=== PATIENT | female | born 1970 | race Caucasian/White ===

== ENCOUNTER → 2016-12-28 | Outpatient (CLI) | payer OTHER, BC ==
--- NOTE | 2016-12-29 11:23 | MR ---
EXAM DATE: 12/28/16 PATIENT'S AGE: 46 Patient: VALENTINA PEPE Facility: [place], [place] Site . Site : 1970 Study: MRI Hip Right [id number]/1/2017 8:08:54 PM Ordering Physician: Karissa Oliver Final Report: HISTORY: Bilateral hip pain. Technique: MRI right hip without contrast. Comparison: Radiographs 11/22/2016. Findings: Right hip: Degenerative tearing of the anterior-superior and anterior acetabular labrum. High-grade cartilage loss in the anterior-superior acetabulum and femoral head. Small subchondral cysts in the anterior-superior acetabulum. Small femoral head marginal osteophytes. Upper limits of normal volume of hip joint fluid. No joint bodies. Left hip: Within the limits of large field of view images, hip joint space is preserved. No joint effusion. Bones: Patchy T1 intermediate marrow signal throughout the pelvis and the imaged portions of the proximal femurs and lumbar spine consistent with hematopoietic marrow. No fracture. No marrow replacing process. No avascular necrosis. Musculotendinous structures: Rectus femoris, distal iliopsoas, hip adductor, gluteal tendons are intact bilaterally. Mild proximal right hamstrings tendinosis. Muscle bulk is maintained. Bursa: No trochanteric or sub gluteal bursal effusion. Other: Left sacroiliac joint degenerative changes, partially imaged. Intrapelvic structures: Unremarkable. Impression: 1. Right hip osteoarthritis with areas of high-grade acetabular and femoral head cartilage loss. 2. Degenerative right acetabular labral tearing. 3. No fracture. Dictated by Dominic Enamorado MD @ Dec 29 2016 8:32AM (Electronic Signature) Report Signed by Proxy and Original Signed Document filed in the Medical Record. [facility] HOSPITALElida
== END ==
LOC: MW.MRI 18:20
PROVIDERS: ATTEND Orthopaedic Surgery
DX: S73.191A Other sprain of right hip, initial encounter (principal); M16.11 Unilateral primary osteoarthritis, right hip; M25.551 Pain in right hip; M25.552 Pain in left hip
CPT/HCPCS: 73721-26-RT; 73721-RT

== ENCOUNTER 2016-12-29 08:57 | Day surgery (SDC) | payer OTHER, BC ==
--- NOTE | 2016-12-28 17:29 | PCM.PREANE ---
Preanesthetic Assessment - ANESTHESIA/TRANSFUSION/FAMILY HX Anesthesia/Transfusion History: Prior Anesthesia Family History of Anesthesia Reaction: No Intubation History: Unknown - REVIEW OF SYSTEMS Constitutional: Reports: no symptoms LOG TUMBLER: Reports: no symptoms Respiratory: Reports: no symptoms (smoker) Cardiovascular: Reports: no symptoms GI: Reports: no symptoms Other: Reports: none - PHYSICAL ASSESSMENT Height: 6 ft Weight: 189 lb ASA Class: 2 Mental Status: alert & oriented x3 Airway Class: Mallampati = 2 Dentition: Reports: crown(s) (full veneers upper and lower). Denies: normal dentition Thyro-Mental Finger Breadths: 3 Mouth Opening Finger Breadths: 3 ROM/Head Extension: full Respiratory Status: lungs clear to auscultation bilaterally Cardiovascular Status: regular rate & rhythm - ALLERGIES Allergies/Adverse Reactions: Allergies Allergy/AdvReac Type Severity Reaction Status Date / Time No Known Allergies Allergy Verified 12/26/16 13:28 - BLOOD Blood Available: No Product(s) Available: None - ANESTHESIA PLAN Preop Beta Liliana: No Anesthesia Type Planned: general anesthesia, spinal - ACKNOWLEDGEMENTS Pt an appropriate candidate for the planned anesthesia: Yes Alternatives and risks of anesthesia discussed w pt/guardian: Yes Pt/Guardian understands and agree with anesthesia plan: Yes PreAnesthesia Questionnaire HEENT History: Reports: Other (see below) Other HEENT History: wears glasses Genitourinary History: Reports: None Musculoskeletal History: Reports: Back pain, chronic, Fibromyalgia, Osteoarthritis - Past Surgical History Head Surgeries/Procedures: Reports: None Female Surgical History: Reports: Breast implant Other Female Surgeries/Procedures: breast augmentation - SUBSTANCE USE Smoking Status *Q: Current Every Day Smoker Tobacco Use Within Last Twelve Months: Cigarettes Recreational Drug Use History: No - HOME MEDS Home Medications: Home Meds Ibuprofen 1 tab PO ASDIRECTED PRN 12/26/16 [History] Naproxen Sodium [Aleve] 1 tab PO ASDIRECTED PRN 12/26/16 [History]
[~2016-12-29 08:57] MED LIST: EPINEPHrine 1:1000 1 MG/ML SDV ONE; Lidocaine 2% 5 ML SDV ONE; Midazolam 1 MG/ML 2 ML SDV ONE; Propofol 200 MG/20 ML SDV ONE; ceFAZolin 2 GM in Premix Bag 1 BAG IV ONE; fentaNYL 100 MCG/2 ML SDV ONE
[2016-12-29] MEDS ORDERED: Lactated Ringers 1,000 ML IV SCH (10:15)
[2016-12-29] MEDS ORDERED: ePHEDrine 50 MG/ML SDV ONE (12:17)
[2016-12-29] MEDS ORDERED: Phenylephrine/Normal Saline 100 MCG/ML 10 ML Syringe ONE ×2 (12:28→13:29)
[2016-12-29] MEDS ORDERED: EPINEPHrine 1:1000 1 MG/ML SDV ONE (13:22)
[2016-12-29] MEDS ORDERED: Ondansetron 4 MG/2 ML SDV ONE (13:41)
[2016-12-29] MEDS ORDERED: Ketorolac 30 MG/ML SDV ONE (13:41)
[2016-12-29] MEDS ORDERED: HYDROmorphone 2 MG/ML Syringe ONE (13:48)
[2016-12-29] MEDS ORDERED: fentaNYL 100 MCG/2 ML SDV IVPUSH PRN (13:57)
--- NOTE | 2016-12-29 14:42 | PCM.OPNOTE ---
- General Post-Op/Procedure Note Date of Surgery/Procedure: 12/29/16 Operative Procedure(s): right hip arthroscopy, acetabuloplasty with labral repair, femoroplasty, bone grafting/percutaneous fixation of acetabular subchondral insufficiency fracture, trochanteric bursectomy Findings: large tear Pre Op Diagnosis: right hip ZAHRA, labral tear, acetabular chondromalacia, acetabular cyst/subchondral insufficiency fracture, trochanteric bursitis Post-Op Diagnosis: same Anesthesia Technique: General LMA, Spinal Primary Surgeon: Al Oliver Mai EBToni in mLs: 5 Complications: none Condition: Good
--- NOTE | 2016-12-29 15:11 | PCM.POSTAN ---
POST ANESTHESIA ASSESSMENT - MENTAL STATUS Mental Status: alert, oriented - VITAL SIGNS Pulse Rate: 63 SaO2: 97 Resp Rate: 14 Blood Pressure: 102/55 - RESPIRATORY Respiratory Status: respiratory rate WNL, airway patent, O2 saturation stable - CARDIOVASCULAR CV Status: pulse rate WNL, blood pressure stable - GASTROINTESTINAL GI Status: no symptoms - PAIN Pain Score: 0 (spinal still covering pain) - POST OP HYDRATION Hydration Status: adequate & stable
[2016-12-29] MEDS ORDERED: Acetaminophen/HYDROcodone 325-10 MG Tab PO PRN ×2 (16:03→17:10)
--- NOTE | 2016-12-29 16:38 | CR ---
EXAMINATION: Right hip arthroscopy HISTORY: Pain COMPARISON: MRI dated 12/28/2016 TECHNIQUE: 6 fluoroscopic images provided FINDINGS/IMPRESSION: Intraoperative control films provided demonstrate instrumentation projecting ov er the right hip.
--- NOTE | 2016-12-29 19:51 | PCM48HPAN ---
Post Anesthesia Note - EVALUATION WITHIN 48HRS OF ANESTHETIC Vital Signs in Normal Range: Yes Patient Participated in Evaluation: Yes Respiratory Function Stable: Yes Airway Patent: Yes Cardiovascular Function Stable: Yes Hydration Status Stable: Yes Pain Control Satisfactory: Yes Nausea and Vomiting Control Satisfactory: Yes Mental Status Recovered: Yes - COMMENTS/OBSERVATIONS Free Text/Narrative:: Pt was transferred from day surgery to [facility] for extended phase II recovery. Currently she only has minimal residual effects from her spinal. She states her "butt" is still numb but she feels she can attempt ambulation. Nursing was informed. VSS. No complications noted.
[2016-12-29 22:21] VITALS: BP 91/54
--- NOTE | 2016-12-29 23:46 | OR ---
SURGEON: Al Hancock MD DATE OF PROCEDURE: 12/29/2016 PREOPERATIVE DIAGNOSES: Right hip femoral acetabular impingement with labral tear, acetabular chondromalacia, trochanteric bursitis, and acetabular cyst/subchondral insufficiency fracture. POSTOPERATIVE DIAGNOSES: Right hip femoral acetabular impingement with labral tear, acetabular chondromalacia, trochanteric bursitis, and acetabular cyst/subchondral insufficiency fracture. OPERATIONS PERFORMED: Right hip arthroscopy, acetabuloplasty with labral repair, femoroplasty, bone grafting/percutaneous treatment of acetabular subchondral insufficiency fracture, trochanter bursectomy. ANESTHESIA: Spinal and general with LMA. COMPLICATIONS: None. ESTIMATED BLOOD LOSS: 5 mL. SPECIMENS: None. IMPLANTS: 1. [employer] AccuFill 3 mL acetabulum. 2. [employer]ani [employer] 1.4 JuggerKnot anchor suture x2. 3. Montes [employer] Nephew 1.8 Q-Fix anchor x2. TRACTION TIME: 1 hour. INDICATIONS: The patient is a 46-year-old female with above diagnosis. She has failed conservative management, treated with modification therapy and injections, and wished to undergo the above procedure. She understands risks, benefits, alternatives, and complications of procedure including, but not limited to infection, neurovascular injury, pain, nonresolution of symptoms, need for postoperative rehab protocol, microinstability, labial numbness, heterotopic ossification, accelerated arthritis and also continued pain particularly laterally, and she wished to proceed. NARRATIVE: The patient was seen in the preoperative area. Operative extremity was marked. The patient was transferred to operating room and spinal anesthetic was given. She was placed supine on the operative room table. General anesthesia was induced and LMA was placed. Her legs were placed in the leg bars in the Montes- Neph traction table with a wide specialized perineal post. The right hip was prepped and draped in a sterile fashion using alcohol followed by ChloraPrep. A time-out to identify correct patient, procedure, and extremity. She received preoperative antibiotics Ancef. Gross traction applied to both legs, fine traction to operating leg. A 1 cm primary anterolateral portal was established just superior and anterior to the greater trochanter using Seldinger technique and FlowPort obturator was introduced in the joint. A mid anterior portal was established 2 cm distal and 4 cm anterior to the primary anterolateral portal using Seldinger technique and a FlowPort obturator was introduced. Capsulotomy was performed connecting the 2 portals. The patient was found to have severe synovitis throughout the entire hip projecting down the ligamentum teres. Exploring the labrum, there was a large labral tear extending from the 12:30 to 3:30 position with a grade 4 chondromalacia of the anterior aspect of the acetabulum extending from the 1:30 to 4:30 position. Remainder of the acetabular cartilage only showed grade 1 to 2 changes and the femoral head cartilage was normal. The posterior labrum was normal. A synovectomy was performed with the shaver and also ligamentum teres synovitis was debrided with the Montes-Nephew ligament chisel. The capsule was then elevated off above the area of the labrum, and a DALA portal was established and cannula was replaced with 2 accessory portals. A liberator was used elevate off the labral tear. It was debrided, and then superior portal 2 cm proximal and 1 cm anterior. Anterior 11 gauge AccuPort cannula was introduced into the joint. This was placed across the area of the anterolateral acetabulum beneath the inferior iliac spine corresponding with subchondral insufficiency fracture/cyst. A 5 mL of AccuFill was mixed and 3 mL was placed and this was allowed to harden for 10 minutes, and then the AccuPort was removed. Following this, an acetabuloplasty was performed removing 2 to 3 mm anterior in the area of the labral tear, and then from the mid anterior portal, a curved 1.4 JuggerKnot suture anchor was placed with vertical mattress suture in the labrum repairing it down, and then from the DALA portal going 8 mm laterally. Two 1.8 Q-Fix anchors were placed with vertical mattress sutures in the labrum and posteriorly in the curve 1.4 JuggerKnot suture anchor was placed all with vertical mattress sutures. This led to a complete labral repair. It was coagulated to remove all erythema within the labrum. Following this, traction was released and the hip was flexed up to 20 to 30 degrees. Two SpeedStitch sutures were placed in inferior capsule and a tiny stab incision was made laterally and lateral tags were pulled out through this, and then T-capsulotomy going down about 1.5 cm was performed fully exposing the CAM lesion that extended from the 12 to 4:30 position. This was curetted off and the bur was used to remove about 4 to 6 mm throughout this entire area fully decompressing the CAM lesion. Direct visualization with impingement test as well as AP done 30, 45, and 90-degree x-rays confirming complete thorough osteochondroplasty. There was intense amount of synovitis medial capsule in the peripheral compartment and this was debrided with the shaver as well. The medial tag sutures were then passed through the lateral capsule using the SpeedStitch and this was secured down utilizing the lateral tag suture and 2 other sutures. The transverse capsulotomy was closed with 3 simple #2 permanent sutures fully closing the capsulotomy. Leg was then abducted 20 degrees and the arthroscope was introduced in the peritrochanteric space. The patient had intense amount of bursitis fully surrounding the entire hip. This was completely debrided with the shaver, and surface to coagulate if. Arthroscopic equipment was switched portals, and then the bursa was cleaned off the entire IT band, gluteus deirdre as well as over the abductors, there was some mild fraying in the abductor tendons, but no discrete tear. The hip was then drained. The portals were closed with 3-0 nylon, Xeroform, and sterile dress applied. The patient was extubated in the operating room and transferred to recovery room in stable condition. Sponge and needle counts correct at the end case. No complications. PLAN: The patient will follow up postop rehab protocol, avoiding lots of external rotation and variable positioning. She will be allowed weightbearing as tolerated. She will take Indocin for HO prophylaxis with Nexium as well as Cozaar for adhesion prophylaxis. MADISON / GRETCHEN /[id number]
== END 2016-12-29 21:20 | disposition home or self-care (01) ==
LOC: MW.SDS 08:57 → MW.MS 18:31 → MW.SDS 21:20
PROVIDERS: ATTEND Orthopaedic Surgery
DX: M25.851 Other specified joint disorders, right hip (principal); S73.101A Unspecified sprain of right hip, initial encounter; M94.251 Chondromalacia, right hip; M70.61 Trochanteric bursitis, right hip; S32.401A Unspecified fracture of right acetabulum, initial encounter for closed fracture; F17.210 Nicotine dependence, cigarettes, uncomplicated; G89.29 Other chronic pain; M54.9 Dorsalgia, unspecified; M79.7 Fibromyalgia; M19.90 Unspecified osteoarthritis, unspecified site; Z98.890 Other specified postprocedural states
CPT/HCPCS: 29914; 29915; 76001; 81025; A9270; J0171; J1170; J1885; J2250; J2405; J3010; J7120; 01202; C1713; C1776; J2704

== ENCOUNTER → 2017-01-10 | Outpatient (CLI) | payer OTHER, BC ==
--- NOTE | 2017-01-10 12:52 | CR ---
EXAMINATION: Pelvis and right hip HISTORY: Other disorder COMPARISON: MRI dated 12/28/2016 TECHNIQUE: AP pelvis and 2 views of the right hip FINDINGS: No acute osseous abnormality, dislocation, or fracture identified. Bone mineralization regina nt spaces appear normal. There is a prominence of the right superior acetabular rim, this could sugg est mild underlying pincer-type femoral acetabular impingement. Mild subchondral sclerosis is noted bilaterally, right greater than left. The SI joints are symmetric. IMPRESSION: 1. Mild Degenerative changes noted within the hips bilaterally, right greater than left.
== END ==
LOC: MW.CHORTHO 08:01
PROVIDERS: ATTEND Physician Assistant
DX: M25.851 Other specified joint disorders, right hip (principal)
CPT/HCPCS: 73502-26-RT; 73502-RT

== ENCOUNTER → 2017-01-17 | Outpatient (CLI) | payer OTHER ==
[~2017-01-17] MED LIST changes: -EPINEPHrine 1:1000 1 MG/ML SDV ONE; +Iopamidol 755 MG/ML 500 ML Multipack Bottle IVPUSH STA; -Lidocaine 2% 5 ML SDV ONE; -Midazolam 1 MG/ML 2 ML SDV ONE; -Propofol 200 MG/20 ML SDV ONE; -ceFAZolin 2 GM in Premix Bag 1 BAG IV ONE; -fentaNYL 100 MCG/2 ML SDV ONE
--- NOTE | 2017-01-17 16:14 | US ---
EXAMINATION: Right breast ultrasound HISTORY: Swelling COMPARISON: None TECHNIQUE: Grayscale and color Doppler images obtained of the upper outer right breast. FINDINGS: There are several round parallel anechoic well-circumscribed cyst within the upper outer r ight breast. The largest measures 8 x 5 mm. No internal color Doppler flow is noted. All demonstrate posterior acoustic enhancement. A partially visualized breast implant is also noted. No suspicious masses identified. IMPRESSION: BI-RADS 2: Benign. Multiple simple cysts are noted within the upper outer quadrant of th e right breast. Please follow-up palpable abnormalities clinically.
--- NOTE | 2017-01-17 16:21 | CT ---
CT of the abdomen with and without contrast. HISTORY: Adrenal mass TECHNIQUE: Axial CT images were obtained of the abdomen without and following the administration of 100 mL of Isovue-370 right antecubital fossa. Coronal and sagittal reconstructions obtained. FINDINGS: The lung bases are clear, no pleural effusion. There is a pleural-based nodule within the right lung base. Breast implants are noted. The liver, spleen, and pancreas appear unremarkable. There is a 2.5 x 1.7 cm left adrenal nodule, th is measures -5 Hounsfield units without contrast. The gallbladder appears normal. There is no bulky retroperitoneal lymphadenopathy. No abdominal ascites. There are no calcifications noted within the kidneys or along the courses of the ureters bilaterally . The kidneys enhance and function symmetrically without evidence of obstructive uropathy. The visualized large and small bowel are normal in caliber without evidence of obstruction. The visualized osseous structures appear normal. IMPRESSION: 1. Low-density left adrenal mass consistent with an adenoma.
== END ==
LOC: MW.DI 09:20
DX: R19.09 Other intra-abdominal and pelvic swelling, mass and lump (principal); N63 Unspecified lump in breast; E27.9 Disorder of adrenal gland, unspecified
CPT/HCPCS: 74170; 76641; Q9967

== ENCOUNTER → 2017-02-20 | Outpatient (CLI) | payer OTHER, BC ==
--- NOTE | 2017-02-21 09:58 | CR ---
EXAM DATE: 02/20/17 PATIENT'S AGE: 46 Patient: VALENTINA PEPE Facility: [place], [place] Site . Site : 1970 Study: XRay Extremity Right [id number]/24/2017 11:30:51 AM Ordering Physician: Karissa Oliver Final Report: HISTORY: Right hip pain, postop December 29. Findings: Two AP views and frogleg view of the pelvis with a cross-table lateral view of the right hip are compared with 22 November 2016. There are degenerative changes seen within the SI joints. There is mild decrease of the right hip joint space with mild spurring of the femoral head. No subchondral abnormality, fracture or dislocation seen. Impression: 1. Degenerative changes the SI joints. 2. Decreased joint space within the right hip with trace spurring compatible with degenerative change. Dictated by Araseli Castillo MD @ Feb 21 2017 12:42AM (Electronic Signature) Report Signed by Proxy and Original Signed Document filed in the Medical Record. MTDD
== END ==
LOC: MW.CHORTHO 07:35
PROVIDERS: ATTEND Orthopaedic Surgery
DX: M25.551 Pain in right hip (principal); M25.552 Pain in left hip
CPT/HCPCS: 73502-26-RT; 73502-RT

== ENCOUNTER 2017-03-21 13:09 | Day surgery (SDC) | payer BC, OTHER ==
[~2017-03-21 13:09] MED LIST changes: +Betamethasone Acetate/Betamethasone Sod Phosphate 30 MG/5 ML MDV ONE; -Iopamidol 755 MG/ML 500 ML Multipack Bottle IVPUSH STA; +Lidocaine 2% 5 ML SDV ONE; +Ropivacaine 0.5% 5 MG/ML 30 ML SDV ONE
--- NOTE | 2017-03-21 22:00 | OR ---
SURGEON: Amaya Grove D.O. DATE OF PROCEDURE: 03/21/2017 OR STAFF PRESENT: Monika Christie RN METAL DRILLING MACHINE OPERATOR: RT Carley. PREOPERATIVE DIAGNOSIS: Lumbar spondylosis. POSTOPERATIVE DIAGNOSIS: Lumbar spondylosis. PROCEDURE PERFORMED: 1. L3, L4, L5 bilateral diagnostic medial branch blocks. 2. Fluoroscopic guidance for needle placement. 3. Local with oral Valium for sedation. SCREENING QUESTIONS: The patient answered "No" to all the following questions: 1. Are you allergic to iodine, Betadine or latex? 2. Do you have a bleeding disorder? 3. Are you on anti-inflammatories or blood thinners? 4. Do you have any current local or systemic infections? MEDICAL NECESSITY: This is a patient with chronic low back pain who comes in for the above diagnostic procedure. This procedure is being performed in accordance with national guidelines written by the [employer]; please see medical necessity note in chart. DESCRIPTION OF PROCEDURE: The patient had the procedure thoroughly explained including risks, benefits and alternatives. Consent was signed in my clinic indicating understanding and willingness to proceed. The patient presented to [facility] and was escorted to the dressing room to disrobe and change into a hospital gown. Preoperative history and screening were performed by my nurse. Vital signs were taken and stable. The patient reported that Valium 10 milligrams was taken prior to the procedure. The patient was brought back to the procedure room and placed in the prone position on the procedure room table. A pillow was placed under the abdomen in order to flatten the lumbar lordosis. The back was prepped with ChloraPrep and sterilely draped. All personnel in the procedure room were dressed in appropriate attire including surgical scrubs, head and shoe covers. This was to ensure sterility while in the treatment room. During the time fluoroscopy was in use all personnel in the operating room wore lead gambino with thyroid collars. Sterile technique was used during the procedure. The fluoroscope was positioned to provide a right oblique view. Then the right L3 medial branch block was begun by anesthetizing the skin and soft tissues with 2 cubic centimeters of 2% Preservative-Free Lidocaine with a 25-gauge 1.5 inch needle. There were no signs of infection at the site of needle skin insertions. Using fluoroscopic guidance a sterile 22-gauge 3.5 inch spinal needle was positioned at the junction of the transverse process with the superior articular process of the L4 vertebral body. Precise needle placement was confirmed by fluoroscopy and 0.2 cubic centimeters of IsoVue-200 contrast dye which was injected through microbore tubing under live fluoroscopy and showed no intravascular flow pattern and adequate flow over the target L3 medial branch. Then 0.5 cubic centimeters of 0.5% Ropivacaine Preservative-Free was injected slowly without complications after negative aspiration. Then the fluoroscope was positioned to provide a right oblique view for the right L4 medial branch. This was begun by anesthetizing the skin and soft tissues. The fluoroscope was positioned and a sterile 22-gauge 3.5 inch needle was placed at the junction of the transverse process in the superior articular process of the L5 vertebral body. Precise needle placement was confirmed by fluoroscopy. Then 0.2 cubic centimeters of IsoVue-200 contrast dye was injected through microbore tubing under live fluoroscopy and showed no intravascular flow pattern and adequate flow over the target medial branch. After negative aspiration, 0.5 cubic centimeters of 0.5% Ropivacaine was injected without complications. The fluoroscope was then positioned to provide a right L5 dorsal ramus block. This was begun by anesthetizing the skin and soft tissues over the right sacral sulcus. Then using fluoroscopic guidance, a sterile 22-gauge 3.5 inch spinal needle was positioned at the right sacral ala. Precise needle placement was confirmed by fluoroscopy in AP and oblique views, and 0.2 cubic centimeters of IsoVue-200 contrast dye was injected through microbore tubing under live fluoroscopy and showed no intravascular flow pattern and adequate flow over the target nerves. After negative aspiration, 0.5 cubic centimeters of 0.5% Ropivacaine was injected. No complications were noted. Then attention was turned to the left side. The fluoroscope was positioned to provide a left oblique view for the left L3 medial branch block. This was begun by anesthetizing the skin and soft tissues. Then a 22-gauge 3.5 inch needle was positioned at the junction of the transverse process and the superior articular process at the left L4 vertebral body. Precise needle placement was confirmed by fluoroscopy with 0.2 cubic centimeters of IsoVue-200 contrast dye injected through microbore tubing under live fluoroscopy showing no intravascular flow pattern and adequate flow over the target medial branch of L3 on the left. After negative aspiration, 0.5 cubic centimeters of 0.5% Ropivacaine was injected without complications. The fluoroscope was positioned then to provide a left L4 medial branch block. The skin was anesthetized. Then a 22-gauge 3.5 inch spinal needle was positioned at the junction of the transverse process in the superior articular process of the L5 vertebral body on the left. Precise needle placement was confirmed by fluoroscopy and with 0.2 cubic centimeters of IsoVue-200 contrast dye injected through microbore tubing showing no intravascular flow pattern and adequate flow over the target medial branch of L4 on the left. Then 0.5 cubic centimeters of 0.5% Ropivacaine was injected after negative aspiration without complications. Then the fluoroscope was positioned for the left L5 dorsal ramus block. This was begun by anesthetizing the skin and soft tissues. Then with fluoroscopic guidance a sterile 22-gauge 3.5 inch spinal needle was positioned at the left sacral ala. Precise needle placement was confirmed with 0.2 cubic centimeters of IsoVue-200 contrast dye injected through microbore tubing under live fluoroscopy showing no intravascular flow pattern and adequate flow over the target L5 nerve.Then 0.5 cc local was injected without complications The procedure was well tolerated and vital signs were stable during and after the procedure. The staff escorted the patient to the recovery area. The patient was given both oral and written discharge and followup instructions. The patient will follow up with a pain diary which will be evaluated over this evening doing things that would normally cause pain. We will evaluate the efficacy of the diagnostic lumbar medial branch blocks as the patient will follow up in the clinic the next day. The patient was given both oral and written discharge and followup instructions. The patient voiced understanding including understanding of those signs and symptoms that would require emergency care and knows how to contact the office if there are any questions or concerns in the meantime. PREOPERATIVE PAIN: 6+/10. POSTOPERATIVE PAIN: 1/10. FOLLOWUP: Followup in the Pain Clinic with pain dairy in the morning. DAGMAR / GRETCHEN /[id number] ISAIAS
== END 2017-03-21 15:47 ==
LOC: MW.SDS 13:09
PROVIDERS: ATTEND Anesthesiology
DX: G89.29 Other chronic pain (principal); M47.816 Spondylosis without myelopathy or radiculopathy, lumbar region; M51.36 Other intervertebral disc degeneration, lumbar region; M06.9 Rheumatoid arthritis, unspecified; K58.9 Irritable bowel syndrome, unspecified; M25.851 Other specified joint disorders, right hip; M25.552 Pain in left hip; J30.9 Allergic rhinitis, unspecified; Z98.890 Other specified postprocedural states; Z79.899 Other long term (current) drug therapy
CPT/HCPCS: 64450; 64493; 64494; 64495; J2795; J0702

== ENCOUNTER → 2017-03-21 | Outpatient (CLI) | payer OTHER, BC | LOC: MW.CHPM 10:22 | PROVIDERS: ATTEND Anesthesiology | DX: Z00.00 Encounter for general adult medical examination without abnormal findings (principal); M54.5 Low back pain; M51.36 Other intervertebral disc degeneration, lumbar region; M47.817 Spondylosis without myelopathy or radiculopathy, lumbosacral region | CPT/HCPCS: 81025 ==

== ENCOUNTER 2017-03-28 11:57 | Day surgery (SDC) | payer BC, OTHER ==
[~2017-03-28 11:57] MED LIST changes: +Iopamidol 408 MG/ML 50 ML SDV ONE
--- NOTE | 2017-03-28 19:18 | OR ---
SURGEON: Amaya Grove D.O. DATE OF PROCEDURE: 03/28/2017 OR STAFF PRESENT: 1. Ale Tracey RN. 2. Abhilash Hassan RN. PROOF PRESS OPERATOR: Erica Bragg. WOUND CLASSIFICATION: I. PREOPERATIVE DIAGNOSES: 1. Lumbar spondylosis. 2. Chronic low back pain. POSTOPERATIVE DIAGNOSES: 1. Lumbar spondylosis. 2. Chronic low back pain. PROCEDURE PERFORMED: 1. Right L3, L4, L5, and left L3, L4, L5 medial branch blocks. 2. Fluoroscopic guidance for needle placement. 3. Local with oral Valium for sedation. SCREENING QUESTIONS: The patient answered "No" to all the following questions: 1. Are you allergic to iodine, Betadine or latex? 2. Do you have a bleeding disorder? 3. Are you on anti-inflammatories or blood thinners? 4. Do you have any current local or systemic infections? MEDICAL NECESSITY: This is a patient with chronic low back pain who comes in for the above diagnostic procedure. This procedure is being performed in accordance with national guidelines written by the International Sp[employer]vention [employer]; please see medical necessity note in chart. DESCRIPTION OF PROCEDURE: The patient had the procedure thoroughly explained including risks, benefits and alternatives. Consent was signed in my clinic indicating understanding and willingness to proceed. The patient presented to [facility] and was escorted to the dressing room to disrobe and change into a hospital gown. Preoperative history and screening were performed by my nurse. Vital signs were taken and stable. The patient reported that Valium 10 milligrams was taken prior to the procedure. The patient was brought back to the procedure room and placed in the prone position on the procedure room table. A pillow was placed under the abdomen in order to flatten the lumbar lordosis. The back was prepped with ChloraPrep and sterilely draped. All personnel in the procedure room were dressed in appropriate attire including surgical scrubs, head and shoe covers. This was to ensure sterility while in the treatment room. During the time fluoroscopy was in use all personnel in the operating room wore lead gambino with thyroid collars. Sterile technique was used during the procedure. The fluoroscope was positioned to provide a right oblique view. Then the right L3 medial branch block was begun by anesthetizing the skin and soft tissues with 2 cubic centimeters of 2% Preservative-Free Lidocaine with a 25-gauge 1.5 inch needle. There were no signs of infection at the site of needle skin insertions. Using fluoroscopic guidance a sterile 22-gauge 3.5 inch spinal needle was positioned at the junction of the transverse process with the superior articular process of the L4 vertebral body. Precise needle placement was confirmed by fluoroscopy and 0.2 cubic centimeters of IsoVue-200 contrast dye which was injected through microbore tubing under live fluoroscopy and showed no intravascular flow pattern and adequate flow over the target L3 medial branch. Then 0.5 cubic centimeters of 0.5% Ropivacaine Preservative-Free was injected slowly without complications after negative aspiration. Then the fluoroscope was positioned to provide a right oblique view for the right L4 medial branch. This was begun by anesthetizing the skin and soft tissues. The fluoroscope was positioned and a sterile 22-gauge 3.5 inch needle was placed at the junction of the transverse process in the superior articular process of the L5 vertebral body. Precise needle placement was confirmed by fluoroscopy. Then 0.2 cubic centimeters of IsoVue-200 contrast dye was injected through microbore tubing under live fluoroscopy and showed no intravascular flow pattern and adequate flow over the target medial branch. After negative aspiration, 0.5 cubic centimeters of 0.5% Ropivacaine was injected without complications. The fluoroscope was then positioned to provide a right L5 dorsal ramus block. This was begun by anesthetizing the skin and soft tissues over the right sacral sulcus. Then using fluoroscopic guidance, a sterile 22-gauge 3.5 inch spinal needle was positioned at the right sacral ala. Precise needle placement was confirmed by fluoroscopy in AP and oblique views, and 0.2 cubic centimeters of IsoVue-200 contrast dye was injected through microbore tubing under live fluoroscopy and showed no intravascular flow pattern and adequate flow over the target nerves. After negative aspiration, 0.5 cubic centimeters of 0.5% Ropivacaine was injected. No complications were noted. Then attention was turned to the left side. The fluoroscope was positioned to provide a left oblique view for the left L3 medial branch block. This was begun by anesthetizing the skin and soft tissues. Then a 22-gauge 3.5 inch needle was positioned at the junction of the transverse process and the superior articular process at the left L4 vertebral body. Precise needle placement was confirmed by fluoroscopy with 0.2 cubic centimeters of IsoVue-200 contrast dye injected through microbore tubing under live fluoroscopy showing no intravascular flow pattern and adequate flow over the target medial branch of L3 on the left. After negative aspiration, 0.5 cubic centimeters of 0.5% Ropivacaine was injected without complications. The fluoroscope was positioned then to provide a left L4 medial branch block. The skin was anesthetized. Then a 22-gauge 3.5 inch spinal needle was positioned at the junction of the transverse process in the superior articular process of the L5 vertebral body on the left. Precise needle placement was confirmed by fluoroscopy and with 0.2 cubic centimeters of IsoVue-200 contrast dye injected through microbore tubing showing no intravascular flow pattern and adequate flow over the target medial branch of L4 on the left. Then 0.5 cubic centimeters of 0.5% Ropivacaine was injected after negative aspiration without complications. Then the fluoroscope was positioned for the left L5 dorsal ramus block. This was begun by anesthetizing the skin and soft tissues. Then with fluoroscopic guidance a sterile 22-gauge 3.5 inch spinal needle was positioned at the left sacral ala. Precise needle placement was confirmed with 0.2 cubic centimeters of IsoVue-200 contrast dye injected through microbore tubing under live fluoroscopy showing no intravascular flow pattern and adequate flow over the target L5 nerve.Then 0.5 cc local was injected. The procedure was well tolerated and vital signs were stable during and after the procedure. The staff escorted the patient to the recovery area. The patient was given both oral and written discharge and followup instructions. The patient will follow up with a pain diary which will be evaluated over this evening doing things that would normally cause pain. We will evaluate the efficacy of the diagnostic lumbar medial branch blocks as the patient will follow up in the clinic the next day. The patient was given both oral and written discharge and followup instructions. The patient voiced understanding including understanding of those signs and symptoms that would require emergency care and knows how to contact the office if there are any questions or concerns in the meantime. PREOPERATIVE PAIN: 8/10. POSTOPERATIVE PAIN: 0/10. FOLLOWUP: Follow up in the Pain Clinic in the morning with pain dairy. HOGLCHR / MODL /[id number] ISAIAS
== END 2017-03-28 14:25 | disposition home or self-care (01) ==
LOC: MW.SDS 11:57
PROVIDERS: ATTEND Anesthesiology
DX: M47.816 Spondylosis without myelopathy or radiculopathy, lumbar region (principal); M51.36 Other intervertebral disc degeneration, lumbar region; M47.817 Spondylosis without myelopathy or radiculopathy, lumbosacral region; G89.29 Other chronic pain; M54.5 Low back pain; M19.90 Unspecified osteoarthritis, unspecified site; M25.851 Other specified joint disorders, right hip; M70.60 Trochanteric bursitis, unspecified hip; M70.70 Other bursitis of hip, unspecified hip; K58.9 Irritable bowel syndrome, unspecified; M06.9 Rheumatoid arthritis, unspecified; Z98.890 Other specified postprocedural states; Z79.899 Other long term (current) drug therapy
CPT/HCPCS: 64450; 64493; 64494; 64495; J2795; Q9966; J0702

== ENCOUNTER 2017-04-27 13:31 | Day surgery (SDC) | payer OTHER ==
[2017-04-27] MEDS ORDERED: Sodium Bicarbonate 8.4% 50 MEQ/50 ML SDV ONE (13:38)
[2017-04-27] MEDS ORDERED: Lidocaine 2% 5 ML SDV ONE (14:01)
--- NOTE | 2017-04-27 21:39 | OR ---
SURGEON: Amaya Grove D.O. DATE OF PROCEDURE: 04/27/2017 OR STAFF PRESENT: 1. Monika Christie RN. 2. Julio Arechiga RN. FORESTRY AIDE: RT Carley. WOUND CLASSIFICATION: I. PREOPERATIVE DIAGNOSES: 1. Lumbar spondylosis. 2. Chronic low back pain. POSTOPERATIVE DIAGNOSES: 1. Lumbar spondylosis. 2. Chronic low back pain. PROCEDURE PERFORMED: 1. Bilateral L3, L4, L5 radiofrequency ablation. 2. Fluoroscopic guidance for needle placement. 3. Local with oral Valium for sedation. JOINTS FOR RADIOFREQUENCY ABLATION: Bilateral L4-5 and L5-S1 zygapophyseal joint. SCREENING QUESTIONS: The patient answered "No" to all the followin. Are you allergic to iodine, Betadine or latex? 2. Do have a bleeding disorder? 3. Are you on any anti-inflammatories or blood thinners? 4. Do you have any current local or systemic infections? RESPONSE TO LAST PROCEDURE: The patient reports greater than 80-90% pain reduction lasting the duration of the previous diagnostic medial branch blocks. MEDICAL NECESSITY: This procedure is being performed in accordance with the national guidelines as written by the [employer], International Sp[employer]vention [employer]. Please see medical necessity note attached. DESCRIPTION OF PROCEDURE: The patient had the procedure thoroughly explained including all possible risks, benefits and alternatives. A consent was signed in my clinic indicating understanding and willingness to proceed. The patient presented to [facility] and was escorted to the dressing room to disrobe and change into a hospital gown. Preoperative vital signs were taken. The patient reported taking Valium 10 milligrams at home prior to the procedure. The patient was brought to the procedure room and placed in the prone position on the procedure room table. A pillow was placed under the hips in order to flatten the lumbar lordosis. The back was prepped with ChloraPrep times three and sterilely draped. All personnel in the operating room were dressed in appropriate attire including surgical scrubs, head and shoe covers. This was to ensure sterility while in the treatment room. During the time fluoroscopy was in use all personnel in the operating room wore lead gambino with thyroid collars. Sterile technique was used during the procedure. The skin overlying the target nerves were anesthetized with 2% Lidocaine Preservative-Free in a sterile 27-gauge 1.5 inch needle. The deep tissues were likewise infiltrated. Standard insulated radiofrequency probe needles with 10 millimeter active tips were inserted at the appropriate sites for the left L3, L4 and L5 dorsal ramus nerves and right L3, L4 and L5 dorsal ramus nerves for radiofrequency ablation. Proper placement each radiofrequency ablation needle was determined both fluoroscopically and with test stimulation at each primary site with 50 hertz for sensory and 2hertz for motor stimulation. No radicular stimulation was identified and no distal motor activity was noted in the lower extremities. Radiofrequency denervation was performed at each site for 90 seconds at 80 degrees centigrade and repeated times two. For patient comfort prior to the radiofrequency denervation, medial branch nerves were numbed with 1 mL of a mixture of 12milligrams of [place], 3 cubic centimeters of 2% Lidocaine PF and 3 cubic centimeters of 0.5% Ropivacaine PF. The patient tolerated the procedure well and had no complications. The vital signs were stable during and after the procedure. The staff escorted the patient to the recovery room area and the patient was released in stable condition after a brief stay in the recovery room monitored by the nurse. The patient was given both oral and written discharge and follow up instructions. The patient understands and knows to contact the office if there are any questions or concerns in the meantime. The patient has an appointment to follow up in three weeks. PREOPERATIVE PAIN: 6/10. POSTOPERATIVE PAIN: 0/10. FOLLOWUP: Follow up in the pain clinic by phone in the morning and follow up in the clinic postprocedure in 4 weeks. HOGSANGEETHA / GRETCHEN /[id number] ISAIAS
== END 2017-04-27 15:20 | disposition home or self-care (01) ==
LOC: MW.SDS 13:31
PROVIDERS: ATTEND Anesthesiology
PROC: 3E0T3TZ Introduction of Destructive Agent into Peripheral Nerves and Plexi, Percutaneous Approach (ICD-10-PCS; principal; 2017-04-27)
DX: G89.29 Other chronic pain (principal); M47.896 Other spondylosis, lumbar region; M19.90 Unspecified osteoarthritis, unspecified site; K58.9 Irritable bowel syndrome, unspecified; M51.36 Other intervertebral disc degeneration, lumbar region; M06.9 Rheumatoid arthritis, unspecified; M47.817 Spondylosis without myelopathy or radiculopathy, lumbosacral region; F17.210 Nicotine dependence, cigarettes, uncomplicated; M79.1 Myalgia; Z79.899 Other long term (current) drug therapy; Z98.890 Other specified postprocedural states
CPT/HCPCS: 64635; 64636; J0702; J2795; Q9966

== ENCOUNTER 2019-10-17 23:03 | Emergency (ER) | payer OTHER ==
[2019-10-18] MEDS ORDERED: Sodium Chloride 0.9% 2.5 ML Syringe FLUSH PRN (00:39)
[2019-10-18] MEDS ORDERED: Sodium Chloride 0.9% 10 ML Syringe FLUSH PRN (00:39)
[2019-10-18] MEDS ORDERED: Sodium Chloride 0.9% 1,000 ML IV ONE (00:39)
[2019-10-18] MEDS ORDERED: Morphine 4 MG/ML Syringe IVPUSH ONE ×2 (00:48→03:04)
[2019-10-18] MEDS ORDERED: Ondansetron 4 MG/2 ML SDV IVPUSH ONE (00:48)
--- NOTE | 2019-10-18 01:07 | EDM.PDOC ---
ED HPI GENERAL MEDICAL PROBLEM - General Chief Complaint: Abdominal Pain Stated Complaint: LOWER RIGHT QUAD Time Seen by Provider: 10/18/19 01:01 Source of Information: Reports: Patient History Limitations: Reports: No Limitations - History of Present Illness INITIAL COMMENTS - FREE TEXT/NARRATIVE: 49-year-old female presents with right upper quadrant pain. Patient denies nausea vomiting fever. Patient states she ate pork ribs today. Patient has a history of lipedema no history of gallbladder disease. Patient has no history of kidney disease. Patient takes pain medicine for back pain. Onset: Today Onset Date: 10/17/19 Duration: Hour(s):, Getting Worse Location: Reports: Abdomen Quality: Reports: Burning Severity: Moderate Improves with: Reports: None Worsens with: Reports: None Associated Symptoms: Reports: No Other Symptoms Right Lower Abdomen Pain Score (Numeric/FACES): 10 - Related Data Allergies Allergy/AdvReac Type Severity Reaction Status Date / Time No Known Allergies Allergy Verified 10/18/19 00:24 Home Meds: Home Meds Hydrocodone/Acetaminophen [Hydrocodon-Acetaminophn 10-325] 1 each PO BID [History] Methocarbamol [Robaxin-750] 750 mg PO TID 10/18/19 [History] Past Medical History HEENT History: Reports: Glaucoma Other HEENT History: wears glasses Cardiovascular History: Reports: None Respiratory History: Reports: None Gastrointestinal History: Reports: None Genitourinary History: Reports: None BRANCH MECHANIC History: Reports: , Spontaneous Musculoskeletal History: Reports: Back Pain, Chronic, Fibromyalgia, Osteoarthritis Neurological History: Reports: None Psychiatric History: Reports: None Endocrine/Metabolic History: Reports: Other (See Below) Other Endocrine/Metabolic History: hypoglycemic Hematologic History: Reports: Blood Transfusion(s) Immunologic History: Reports: None Oncologic (Cancer) History: Reports: None Dermatologic History: Reports: None - Infectious Disease History Infectious Disease History: Reports: Chicken Pox - Past Surgical History Head Surgeries/Procedures: Reports: None HEENT Surgical History: Reports: Laser Surgery Female Surgical History: Reports: Breast Implant Social & Family History - Tobacco Use Smoking Status *Q: Current Every Day Smoker Years of Tobacco use: 31 Packs/Tins Daily: 0.5 - Caffeine Use Caffeine Use: Reports: Energy Drinks - Recreational Drug Use Recreational Drug Use: No ED ROS GENERAL - Review of Systems Review Of Systems: See Below Constitutional: Reports: No Symptoms HEENT: Reports: No Symptoms Respiratory: Reports: No Symptoms Cardiovascular: Reports: No Symptoms Endocrine: Reports: No Symptoms GI/Abdominal: Reports: Abdominal Pain : Reports: No Symptoms Musculoskeletal: Reports: No Symptoms Skin: Reports: No Symptoms Neurological: Reports: No Symptoms Psychiatric: Reports: No Symptoms Hematologic/Lymphatic: Reports: No Symptoms Immunologic: Reports: No Symptoms ED EXAM, GI/ABD - Physical Exam Exam: See Below Exam Limited By: No Limitations General Appearance: Alert, WD/WN, Moderate Distress Ears: Normal External Exam, Hearing Grossly Normal, Normal TMs Nose: Normal Inspection Throat/Mouth: Normal Inspection Head: Atraumatic Neck: Normal Inspection Respiratory/Chest: No Respiratory Distress Cardiovascular: Normal Peripheral Pulses GI/Abdominal Exam: Normal Bowel Sounds, No Distention, Tender. No: Rebound, Abnormal Bowel Sounds (Female) Exam: Deferred Rectal (Female) Exam: Deferred Back Exam: Normal Inspection, CVA Tenderness (R) Extremities: Normal Inspection, Normal Range of Motion, No Pedal Edema Neurological: Alert, Oriented, CN II-XII Intact Skin Exam: Warm, Dry, Intact, Normal Color Lymphatic: No Adenopathy Course - Vital Signs Last Recorded V/S: Last Vital Signs Temp 96.1 F 10/18/19 00:19 Pulse 68 10/18/19 02:00 Resp 16 10/18/19 02:00 BP 130/74 10/18/19 02:00 Pulse Ox 98 10/18/19 02:00 - Orders/Labs/Meds Orders: Active Orders 24 hr Category Date Time Status Sodium Chloride 0.9% [Saline Flush] Med 10/18/19 00:39 Active 10 ml FLUSH ASDIRECTED PRN Sodium Chloride 0.9% [Saline Flush] Med 10/18/19 00:39 Active 2.5 ml FLUSH ASDIRECTED PRN Saline Lock Insert [OM.PC] Stat Oth 10/18/19 00:39 Ordered Medication Orders Sodium Chloride (Saline Flush) 10 ml FLUSH ASDIRECTED PRN PRN Reason: Keep Vein Open Sodium Chloride (Saline Flush) 2.5 ml FLUSH ASDIRECTED PRN PRN Reason: Keep Vein Open Labs: Laboratory Tests 10/18/19 10/18/19 10/18/19 Range/Units 00:45 00:45 02:20 WBC 9.22 (4.0-11.0) K/uL RBC 4.45 (4.30-5.90) M/uL Hgb 14.4 (12.0-16.0) g/dL Hct 42.0 (36.0-46.0) % MCV 94.4 (80.0-98.0) fL MCH 32.4 H (27.0-32.0) pg MCHC 34.3 (31.0-37.0) g/dL RDW Std Deviation 43.0 (28.0-62.0) fl RDW Coeff of Cleopatra 13 (11.0-15.0) % Plt Count 262 (150-400) K/uL MPV 10.80 (7.40-12.00) fL Neut % (Auto) 43.6 L (48.0-80.0) % Lymph % (Auto) 41.0 H (16.0-40.0) % Ceiba % (Auto) 10.1 (0.0-15.0) % Eos % (Auto) 4.8 (0.0-7.0) % Baso % (Auto) 0.5 (0.0-1.5) % Neut # (Auto) 4.0 (1.4-5.7) K/uL Lymph # (Auto) 3.8 H (0.6-2.4) K/uL Ceiba # (Auto) 0.9 H (0.0-0.8) K/uL Eos # (Auto) 0.4 (0.0-0.7) K/uL Baso # (Auto) 0.1 (0.0-0.1) K/uL Sodium 141 (136-145) mmol/L Potassium 4.0 (3.5-5.1) mmol/L Chloride 105 (98-107) mmol/L Carbon Dioxide 29.3 (21.0-32.0) mmol/L BUN 25 H (7.0-18.0) mg/dL Creatinine 1.0 (0.6-1.0) mg/dL Est Cr Clr Drug Dosing 76.81 mL/min Estimated GFR (MDRD) 58.5 ml/min Glucose 98 (74-106) mg/dL Calcium 9.2 (8.5-10.1) mg/dL Total Bilirubin 0.2 (0.2-1.0) mg/dL AST 20 (15-37) IU/L ALT 23 (14-63) IU/L Alkaline Phosphatase 106 (46-116) U/L Total Protein 7.6 (6.4-8.2) g/dL Albumin 4.2 (3.4-5.0) g/dL Globulin 3.4 (2.6-4.0) g/dL Albumin/Globulin Ratio 1.2 (0.9-1.6) Amylase 54 (25-115) U/L Lipase 118 (73-393) U/L Urine Color YELLOW Urine Appearance CLEAR Urine pH 6.0 (5.0-8.0) Ur Specific [place] 1.015 (1.001-1.035) Urine Protein NEGATIVE (NEGATIVE) mg/dL Urine Glucose (UA) NEGATIVE (NEGATIVE) mg/dL Urine Ketones NEGATIVE (NEGATIVE) mg/dL Urine Occult Blood TRACE-INTACT H (NEGATIVE) Urine Nitrite NEGATIVE (NEGATIVE) Urine Bilirubin NEGATIVE (NEGATIVE) Urine Urobilinogen 0.2 (<2.0) EU/dL Ur Leukocyte Esterase NEGATIVE (NEGATIVE) Urine RBC 0-1 (0-2/HPF) Urine WBC 0-1 (0-5/HPF) Ur Epithelial Cells RARE (NONE-FEW) Urine Bacteria RARE (NEGATIVE) Meds: Medications Generic Name Dose Route Start Last Admin Trade Name Altagracia PRN Reason Stop Dose Admin Sodium Chloride 10 ml 10/18/19 00:39 Saline Flush FLUSH ASDIRECTED PRN Keep Vein Open Sodium Chloride 2.5 ml 10/18/19 00:39 Saline Flush FLUSH ASDIRECTED PRN Keep Vein Open Discontinued Medications Generic Name Dose Route Start Last Admin Trade Name Altagracia PRN Reason Stop Dose Admin Sodium Chloride 1,000 mls @ 999 mls/hr 10/18/19 00:39 10/18/19 00:58 Normal Saline IV 10/18/19 01:39 999 mls/hr .Bolus ONE Administration Iopamidol 100 ml 10/18/19 03:25 10/18/19 03:26 Isovue Multipack-370 (76%) IVPUSH 10/18/19 03:26 100 ml ONETIME ONE Administration Ketorolac Tromethamine 30 mg 10/18/19 04:34 10/18/19 05:05 Toradol IVPUSH 10/18/19 04:35 30 mg ONETIME ONE Administration Morphine Sulfate 4 mg 10/18/19 00:48 10/18/19 00:58 Morphine IVPUSH 10/18/19 00:49 4 mg ONETIME ONE Administration Morphine Sulfate 4 mg 10/18/19 03:04 10/18/19 03:09 Morphine IVPUSH 10/18/19 03:05 4 mg ONETIME ONE Administration Ondansetron HCl 4 mg 10/18/19 00:48 10/18/19 00:58 Zofran IVPUSH 10/18/19 00:49 4 mg ONETIME ONE Administration Departure - Departure Time of Disposition: 05:17 Disposition: Home, Self-Care 01 Condition: Good Clinical Impression: Gall bladder polyp, Cholecystitis - Discharge Information Instructions: Gallbladder Eating Plan, Cholelithiasis, [id number] Referrals: PCP,Unknown [Primary Care Provider] - Forms: ED Department Discharge Additional Instructions: You have been diagnosed with a gallbladder polyp. You need to follow-up with the surgeon for evaluation. Avoid fatty foods. And for any problems Sepsis Event Note - Evaluation Sepsis Screening Result: No Definite Risk - Focused Exam Vital Signs: Vital Signs Temp Pulse Resp BP Pulse Ox 10/18/19 02:00 68 16 130/74 98 10/18/19 00:19 96.1 F 71 20 131/76 96 Date Exam was Performed: 10/18/19 Time Exam was Performed: 05:16 - My Orders Last 24 Hours: My Active Orders 10/18/19 00:39 Sodium Chloride 0.9% [Saline Flush] 10 ml FLUSH ASDIRECTED PRN Sodium Chloride 0.9% [Saline Flush] 2.5 ml FLUSH ASDIRECTED PRN Saline Lock Insert [OM.PC] Stat - Assessment/Plan Last 24 Hours: My Active Orders 10/18/19 00:39 Sodium Chloride 0.9% [Saline Flush] 10 ml FLUSH ASDIRECTED PRN Sodium Chloride 0.9% [Saline Flush] 2.5 ml FLUSH ASDIRECTED PRN Saline Lock Insert [OM.PC] Stat
[2019-10-18 01:34] LABS: CARBON DIOXIDE,CO2 29.3 mmol/L (21.0-32.0)
--- NOTE | 2019-10-18 02:41 | US ---
INDICATION: Right upper quadrant pain TECHNIQUE: Ultrasound abdomen limited. Sonographic images of the right upper quadrant were obtained using wilcox-scale and color Doppler images. COMPARISON: None FINDINGS: Liver: Normal in size and echotexture. No masses. No intrahepatic biliary dilatation. Gallbladder: 5 millimeter probable gallbladder polyp. No definitive gallstones. Normal wall thickness. No pericholecystic fluid. Common bile duct: 1-2 mm. Pancreas: Normal. Right kidney: 9.8 cm. Normal echotexture and cortex. No masses, stones, or hydronephrosis. IMPRESSION: 5 millimeter gallbladder polyp in an otherwise normal-appearing gallbladder. Normal common bile duct. No definitive findings to explain the patient`s symptoms. Dictated by Nav Gonzales MD @ 10/18/2019 2:40:31 AM Dictated by: Nav Gonzales MD @ 10/18/2019 02:40:43 (Electronically Signed)
[2019-10-18 03:14] VITALS: BP 130/74; PULSE 68
[2019-10-18] MEDS ORDERED: Iopamidol 755 MG/ML 200 ML Multipack Bottle IVPUSH ONE (03:25)
--- NOTE | 2019-10-18 03:55 | CT ---
INDICATION: Right lower quadrant pain TECHNIQUE: CT abdomen and pelvis acquired with IV contrast. 100 cc Isovue 370 COMPARISON: 01/17/2017 FINDINGS: Lower chest: Unremarkable. Liver: Unremarkable. Spleen: Unremarkable. Pancreas: Unremarkable. Gallbladder and bile ducts: Unremarkable. Kidneys: Unremarkable. Adrenal glands: Unremarkable. GI tract: Barium identified within the cecum adjacent ascending colon and right side of the transverse colon due to adjacent artifact difficult evaluate for abnormalities in the right lower quadrant. The appendix is not visualized. Vascular structures: Unremarkable. Lymph nodes: Unremarkable. Miscellaneous: Unremarkable. No free air or significant free fluid. Pelvic Organs: Unremarkable. Bones: Unremarkable for age. IMPRESSION: Limited evaluation of the right lower quadrant due to retained barium within the cecum, ascending and transverse colon. The appendix is not visualized. No definitive findings to explain the patient`s symptoms. Dictated by Nav Gonzales MD @ 10/18/2019 3:53:05 AM Please note that all CT scans at this facility use dose modulation, iterative reconstruction, and/or weight-based dosing when appropriate to reduce radiation dose to as low as reasonably achievable. Dictated by: Nav Gonzales MD @ 10/18/2019 03:53:15 (Electronically Signed)
[2019-10-18] MEDS ORDERED: Ketorolac 30 MG/ML SDV IVPUSH ONE (04:34)
== END 2019-10-18 05:48 | disposition home or self-care (01) ==
LOC: MW.ED 23:03
DX: K82.4 Cholesterolosis of gallbladder (principal); F17.210 Nicotine dependence, cigarettes, uncomplicated
CPT/HCPCS: 36415; 74177; 76705; 80053; 81001; 82150; 83690; 85025; 96361; 96374; 96375; 96376; 99284; J1885; J2270; J2405; J7030; Q9967

== ENCOUNTER 2020-08-14 08:11 | Day surgery (SDC) | payer OTHER ==
[~2020-08-14 08:11] MED LIST changes: -Betamethasone Acetate/Betamethasone Sod Phosphate 30 MG/5 ML MDV ONE; -Iopamidol 408 MG/ML 50 ML SDV ONE; +Lactated Ringers 1,000 ML IV SCH; -Lidocaine 2% 5 ML SDV ONE; -Ropivacaine 0.5% 5 MG/ML 30 ML SDV ONE
--- NOTE | 2020-08-14 08:46 | PCM.PREANE ---
Preanesthetic Assessment - Anesthesia/Transfusion/Family Hx Anesthesia History: Prior Anesthesia Without Reaction Family History of Anesthesia Reaction: No Transfusion History: Prior Transfusion Without Reaction Intubation History: Unknown - Review of Systems General: No Symptoms Pulmonary: No Symptoms Cardiovascular: No Symptoms Gastrointestinal: Constipation Neurological: No Symptoms Other: Reports: None - Physical Assessment Height: 6 ft Weight: 90.718 kg ASA Class: 2 Mental Status: Alert & Oriented x3 Airway Class: Mallampati = 2 Dentition: Reports: Normal Dentition, [place](s) (multiple upper frony) Thyro-Mental Finger Breadths: 3 Mouth Opening Finger Breadths: 3 ROM/Head Extension: Full Lungs: Clear to Auscultation, Normal Respiratory Effort Cardiovascular: Regular Rate, Regular Rhythm - Allergies Allergies/Adverse Reactions: Allergies Allergy/AdvReac Type Severity Reaction Status Date / Time No Known Allergies Allergy Verified 08/11/20 10:54 - Blood Blood Available: No - Anesthesia Plan Pre-Op Medication Ordered: None - Acknowledgements Anesthesia Type Planned: MAC Pt an Appropriate Candidate for the Planned Anesthesia: Yes Alternatives and Risks of Anesthesia Discussed w Pt/Guardian: Yes Pt/Guardian Understands and Agrees with Anesthesia Plan: Yes PreAnesthesia Questionnaire HEENT History: Reports: Impaired Vision, Other (See Below) Other HEENT History: wears glasses Cardiovascular History: Reports: None Respiratory History: Reports: None Gastrointestinal History: Reports: Chronic Constipation, Irritable Bowel Syndrome, Other (See Below) Other Gastrointestinal History: occasional reflux Genitourinary History: Reports: None WAGON WASHER History: Reports: , Spontaneous Musculoskeletal History: Reports: Back Pain, Chronic, Fibromyalgia, Osteoarthritis, Other (See Below) (chronic pain syndrome, fibromyalgia,myofascial pain- chronic narcotic use) Other Musculoskeletal History: last lumbar steroid injection 08/06/20 in [place] Neurological History: Reports: None Psychiatric History: Reports: None Endocrine/Metabolic History: Reports: None Hematologic History: Reports: Blood Transfusion(s) Immunologic History: Reports: None Oncologic (Cancer) History: Reports: None Dermatologic History: Reports: None - Infectious Disease History Infectious Disease History: Reports: None - Past Surgical History Head Surgeries/Procedures: Reports: None HEENT Surgical History: Reports: Laser Surgery Other HEENT Surgeries/Procedures: laser surgery to both eyes to relieve pressure, Cardiovascular Surgical History: Reports: None Respiratory Surgical History: Reports: None GI Surgical History: Reports: Colonoscopy (20 years ago) Female Surgical History: Reports: Breast Implant Other Female Surgeries/Procedures: breast augmentation Endocrine Surgical History: Reports: None Neurological Surgical History: Reports: None Musculoskeletal Surgical History: Reports: Other (See Below) Other Musculoskeletal Surgeries/Procedures:: brachioplasty, excision of lipedema (liposuction) from both legs and buttocks Oncologic Surgical History: Reports: None Dermatological Surgical History: Reports: Other (See Below) - SUBSTANCE USE Tobacco Use Status *Q: Current Every Day Tobacco User Tobacco Use Within Last Twelve Months: Cigarettes - HOME MEDS Home Medications: Home Meds Hydrocodone/Acetaminophen [Hydrocodon-Acetaminophn 10-325] 1 each PO BID PRN 10/18/19 [History] methocarbamoL [Robaxin-750] 750 mg PO TID PRN 10/18/19 [History] Acetaminophen [Tylenol] 1 tab PO ASDIRECTED PRN 08/11/20 [History] Ascorbic Acid [Vitamin C] 1,000 mg PO DAILY 08/11/20 [History] Cholecalciferol (Vitamin D3) [Vitamin D3] 1,000 units PO DAILY 08/11/20 [History] Diclofenac Sodium [Voltaren 1% Gel] 1 applic TOP ASDIRECTED PRN 08/11/20 [History] Ferrous Sulfate [Iron] 65 mg PO DAILY 08/11/20 [History] Fish Oil/Newman-3 Fatty Acids [Fish Oil 1,000 MG] 1,000 mg PO DAILY 08/11/20 [History] Varenicline Tartrate [Chantix] 1 tab PO BID 08/11/20 [History] - CURRENT (IN HOUSE) MEDS Current Meds: Current Medications Lactated Ringer's (Ringers, Lactated) 1,000 mls @ 125 mls/hr IV ASDIRECTED MOIRA
[2020-08-14] MEDS ORDERED: Lidocaine 2% 5 ML SDV ONE (09:03)
[2020-08-14] MEDS ORDERED: Propofol 200 MG/20 ML SDV ONE ×2 (09:04→10:10)
[2020-08-14] MEDS ORDERED: fentaNYL 100 MCG/2 ML SDV ONE (09:04)
[2020-08-14] MEDS ORDERED: Midazolam 1 MG/ML 2 ML SDV ONE (09:04)
[2020-08-14] MEDS ORDERED: Ketorolac 30 MG/ML SDV ONE (09:11)
[2020-08-14] MEDS ORDERED: Glycopyrrolate 0.2 MG/ML SDV ONE ×2 (09:55→10:00)
[2020-08-14] MEDS ORDERED: ePHEDrine 50 MG/ML SDV ONE (10:08)
--- NOTE | 2020-08-14 10:43 | PCM.OPNOTE ---
- General Post-Op/Procedure Note Date of Surgery/Procedure: 08/14/20 Operative Procedure(s): egd w bx. colonoscopy w bx Findings: see [id number] Pre Op Diagnosis: Black tarry stool and dysphagia Post-Op Diagnosis: Same Anesthesia Technique: Moderate Sedation Primary Surgeon: Tres Soliman Pathology: egd bx and sessile polyps 1 - 2 mm at 25cm and 30cm when scope pulled out Complications: None Condition: Good
--- NOTE | 2020-08-14 10:51 | PCM.POSTAN ---
POST ANESTHESIA ASSESSMENT - MENTAL STATUS Mental Status: Alert, Oriented - VITAL SIGNS Vital Signs: Last Vital Signs Temp 37.0 C 08/14/20 10:32 Pulse 76 08/14/20 10:42 Resp 14 08/14/20 10:42 BP 111/65 08/14/20 10:42 Pulse Ox 97 08/14/20 10:42 - RESPIRATORY Respiratory Status: Respiratory Rate WNL, Airway Patent, O2 Saturation Stable - CARDIOVASCULAR CV Status: Pulse Rate WNL, Blood Pressure Stable - GASTROINTESTINAL GI Status: No Symptoms - PAIN Pain Score: 0 - POST OP HYDRATION Hydration Status: Adequate & Stable - OBSERVATIONS Free Text/Narrative:: No anesthesia problems
--- NOTE | 2020-08-14 11:11 | PCM48HPAN ---
Post Anesthesia Note - EVALUATION WITHIN 48HRS OF ANESTHETIC Vital Signs in Normal Range: Yes Patient Participated in Evaluation: Yes Respiratory Function Stable: Yes Airway Patent: Yes Cardiovascular Function Stable: Yes Hydration Status Stable: Yes Pain Control Satisfactory: Yes Nausea and Vomiting Control Satisfactory: Yes Mental Status Recovered: Yes Vital Signs: Last Vital Signs Temp 37.0 C 08/14/20 10:32 Pulse 70 08/14/20 10:48 Resp 13 08/14/20 10:48 BP 121/58 L 08/14/20 10:48 Pulse Ox 97 08/14/20 10:48 - COMMENTS/OBSERVATIONS Free Text/Narrative:: No anesthesia problems
[2020-08-14 11:43] VITALS: BP 108/58; PULSE 63
--- NOTE | 2020-08-14 13:01 | OR ---
SURGEON: Tres Soliman MD DATE OF PROCEDURE: 08/14/2020 PREOPERATIVE DIAGNOSES: Dysphagia and black tarry stool. POSTOPERATIVE DIAGNOSES: Dysphagia and black tarry stool. PROCEDURES PERFORMED: Esophagogastroduodenoscopy with biopsy and colonoscopy with biopsy. DESCRIPTION OF PROCEDURE: EGD: The patient was taken to the endoscopy room, and with the [employer], Diprivan was administered. A well-lubricated EGD scope was gently inserted through the oropharynx, down the esophagus, passing through the gastroesophageal junction, into the stomach. The mucosa was examined upon the passage. Any etiology will be noted. Once in the stomach, we continued to advance to the distal antrum, passed through the pylorus into the second portion of the duodenum. Again, the mucosa was examined for any abnormality and etiology. The scope was then retrieved back to the stomach and then retroflexed to look at the fundus of the stomach. If a biopsy was indicated, we will biopsy the antrum, body, and gastroesophageal junction. The air will be sucked out while the scope is retrieved to reduce the patient's discomfort. The patient tolerated the procedure well. There were no intraoperative complications. Dr. Soliman was present through the whole procedure. Prior to surgery, a time-out had been called, the patient identified, procedure identified and antibiotic administered. The patient was taken to the endoscopy room. A time out was called, patient identified, and procedure identified. Diprivan was then administrated. Patient went from awake to sleep, hearing doctor talking or door closing is normal. Perineum inspection and digital examination were then performed. A well- lubricated colonoscope was gently inserted through the rectum, advanced past the rectosigmoid junction, the descending colon, splenic flexure, transverse colon, hepatic flexure, ascending colon, arrived to the cecum. Cecum was identified as dictated in the finding. Then the scope was carefully withdrawn while attention was paid to the mucosal surface for any abnormality. Air will be sucked out during the scope withdrawal. At the rectum, retroflexed to examine any rectal diseases, fistula or hemorrhoids. During mucosal examination, abnormality or polyp was noted; picture taken and biopsy performed. Patient tolerated procedure well. There were no intraoperative complications, and Dr. Soliman was present throughout the whole procedure. FINDINGS: EGD findings: 1. The patient is easily sedated with [employer] and Diprivan, the patient is soundly snoring. 2. Oropharynx and proximal esophagus are free of disease, stricture, inflammation, AV malformation, none of those. Distal esophagus at GE junction at 40 shows minimal salmon-colored change, suggests little acid reflux. Stomach rugae are normal in appearance and antrum looks fine. There are a couple of petechiae dots in the antrum and believe it is clinically insignificant. Duodenum is grossly normal. Retroflexed look at the fundus of stomach, there is no hiatal hernia. Biopsy done at antrum, body, GE junction at 40 and sucked out the gas while scope pulling out. During the whole study, there is no stricture, inflammation, ulcer, food particle, or bile, none of those. Colonoscopy findings: 1. The patient is easily sedated with [employer] and Diprivan, the patient is soundly snoring. 2. The patient has an anal tag and external hemorrhoids, but none of them are thrombosed or engorging, pretty benign looking, however, moderate amount of it. Colon is rather straightforward. Bowel prep is marginally acceptable to unacceptable. Large amount of liquid stool, stool ball, and semi-formed stool. No solid stool, and the patient probably would benefit to use a different kind of extended bowel prep for the next one as this one is already using GoLYTELY. Cecum indicated by ileocecal fold, one-to-one indentation, appendiceal orifice. ScopeGuide is pointing south. Mucosa examined upon scope pulling out with constant irrigation. Again, this is a compromised study because of bowel prep. The patient has several small tiny, like 1 to 2 mm, sessile polyp at 25 to 30 cm when the scope pulled out. We biopsied two of them. Other than that, the patient also has mild diverticulosis on the left colon. No inflammation, signs or symptoms of diverticulitis, but again it is a compromised study because of bowel prep, a lot of liquid stool and semi-formed stool floating around despite constant irrigation. Stool color is yellow, not black, and there is no blood. No mass, growth, other abnormality. The patient does have diverticulosis and some very very tiny sessile polyps. Random biopsy for abd pain; The patient has internal hemorrhoids too. The patient would benefit from repeat colonoscopy, probably 12 to 24 months, with extended bowel prep using GoLYTELY and today clear liquid like that. We will talk about it in the office on followup visit. FER / GRETCHEN /[id number] ISAIAS
== END 2020-08-14 11:30 | disposition home or self-care (01) ==
LOC: MW.SDS 08:11
PROVIDERS: ATTEND Surgery
DX: K63.5 Polyp of colon (principal); K64.4 Residual hemorrhoidal skin tags; K57.30 Diverticulosis of large intestine without perforation or abscess without bleeding; K64.8 Other hemorrhoids; G89.4 Chronic pain syndrome; M79.18 Myalgia, other site; M06.9 Rheumatoid arthritis, unspecified; M47.817 Spondylosis without myelopathy or radiculopathy, lumbosacral region; K58.9 Irritable bowel syndrome, unspecified; F17.200 Nicotine dependence, unspecified, uncomplicated; Z79.899 Other long term (current) drug therapy; Z98.890 Other specified postprocedural states
CPT/HCPCS: 43239; 45380; J2001; J2250; J2704; J3010; J3490; J7120; 00813; 88305; 88312; J1885

== ENCOUNTER 2022-12-09 06:48 | Day surgery (SDC) | payer OTHER ==
[2022-12-09] MEDS ORDERED: fentaNYL 100 MCG/2 ML SDV ONE (07:27)
[2022-12-09] MEDS ORDERED: Propofol 200 MG/20 ML SDV ONE (07:27)
[2022-12-09] MEDS ORDERED: ePHEDrine 50 MG/ML SDV ONE (08:29)
[2022-12-09 09:02] VITALS: BP 113/79; PULSE 63
== END 2022-12-09 09:15 | disposition home or self-care (01) ==
LOC: MW.SDS 06:48
PROVIDERS: ATTEND Surgery
DX: Z12.11 Encounter for screening for malignant neoplasm of colon (principal); K57.30 Diverticulosis of large intestine without perforation or abscess without bleeding; J30.9 Allergic rhinitis, unspecified; M19.90 Unspecified osteoarthritis, unspecified site; K58.9 Irritable bowel syndrome, unspecified; M06.9 Rheumatoid arthritis, unspecified; F17.210 Nicotine dependence, cigarettes, uncomplicated; F41.9 Anxiety disorder, unspecified; F32.A Depression, unspecified; Z79.899 Other long term (current) drug therapy; Z86.010 Personal history of colon polyps; Z98.890 Other specified postprocedural states
CPT/HCPCS: 45378; J2704; J3010; J7120; J3490

== ENCOUNTER 2024-05-25 02:09 | Emergency (ER) | payer OTHER ==
[2024-05-25] MEDS: Sodium Chloride 0.9% 1,000 ML IV ONE (02:40)
[2024-05-25] MEDS: Morphine 4 MG/ML Syringe IVPUSH ONE ×2 (02:40→03:02)
[2024-05-25 02:46] LABS: BASOPHILS PERCENT AUTO 0.8 % (0.0-1.0); EOSINOPHILS ABSOLUTE AUTO 0.38 K/uL (0.00-0.45); HEMATOCRIT 37.9 % (37.0-47.0); IMMATURE GRAN ABSOLUTE AUTO 0.06 K/uL (0.00-0.05); IMMATURE GRAN PERCENT AUTO 0.5 % (0.0-0.4); LYMPHOCYTES PERCENT AUTO 33.5 % (24.0-44.0); MEAN CORPUSCULAR HEMOGLOBIN 33.1 pg (28.0-32.0); MEAN CORPUSCULAR HGB CONC 34.3 g/dL (32.0-36.0); MEAN CORPUSCULAR VOLUME 96.4 fL (83.0-99.0); MONOCYTES ABSOLUTE AUTO 1.03 K/uL (0.00-0.80); MONOCYTES PERCENT AUTO 8.2 % (0.0-8.0); NEUTROPHILS ABSOLUTE AUTO 6.77 K/uL (1.80-7.70); PLATELET COUNT,PLT 277 K/uL (150-400); RED BLOOD CELL COUNT 3.93 M/uL (4.10-5.30); WHITE BLOOD CELL COUNT,WBC 12.54 K/uL (3.9-11.3)
[2024-05-25] MEDS: Ondansetron 4 MG/2 ML SDV IVPUSH ONE (02:46)
[2024-05-25] MEDS: Sodium Chloride 0.9% 10 ML Syringe FLUSH PRN (02:49)
[2024-05-25] MEDS: Sodium Chloride 0.9% 2.5 ML Syringe FLUSH PRN (02:49)
[2024-05-25 03:16] LABS: A/G RATIO 1.3 (0.9-1.6); ALBUMIN 3.4 g/dL (3.4-5.0); BILIRUBIN TOTAL 0.5 mg/dL (0.2-1.0); CALCIUM 8.4 mg/dL (8.5-10.1); CREATININE 1.1 mg/dL (0.6-1.0); EST CRCL DRUG DOSING (CG) 61.75 mL/min; POTASSIUM,K 3.8 mmol/L (3.5-5.1); PROTEIN TOTAL,TP 6.1 g/dL (6.4-8.2)
[2024-05-25] MEDS: Morphine 4 MG/ML Syringe ONE (03:34)
[2024-05-25] MEDS: Iopamidol 755 MG/ML 500 ML Multipack Bottle IVPUSH ONE (03:55)
[2024-05-25] MEDS: Ciprofloxacin 500 MG Tab PO ONE (04:33)
[2024-05-25] MEDS: metroNIDAZOLE 250 MG Tab PO ONE (04:33)
[2024-05-25 04:39] VITALS: BP 130/77; PULSE 57
== END 2024-05-25 04:50 | disposition home or self-care (01) ==
LOC: MW.ED 02:09
DX: K52.9 Noninfective gastroenteritis and colitis, unspecified (principal); R59.0 Localized enlarged lymph nodes; E27.9 Disorder of adrenal gland, unspecified
CPT/HCPCS: 36415; 74177; 80053; 83690; 85025; 96361; 96374; 96375; 96376; 99284; A9270; J2270; J2405; J3490; J7030; Q9967

== ENCOUNTER 2024-06-12 22:15 | Emergency (ER) | payer OTHER ==
[2024-06-12 22:43] LABS: BASOPHILS ABSOLUTE AUTO 0.07 K/uL (0.00-0.20); BASOPHILS PERCENT AUTO 0.6 % (0.0-1.0); EOSINOPHILS ABSOLUTE AUTO 0.32 K/uL (0.00-0.45); EOSINOPHILS PERCENT AUTO 2.8 % (0.0-6.0); HEMOGLOBIN 14.1 g/dL (12.0-16.0); IMMATURE GRAN ABSOLUTE AUTO 0.03 K/uL (0.00-0.05); IMMATURE GRAN PERCENT AUTO 0.3 % (0.0-0.4); LYMPHOCYTES ABSOLUTE AUTO 3.94 K/uL (1.00-4.80); LYMPHOCYTES PERCENT AUTO 34.7 % (24.0-44.0); MEAN CORPUSCULAR HEMOGLOBIN 33.4 pg (28.0-32.0); MEAN CORPUSCULAR HGB CONC 34.4 g/dL (32.0-36.0); MEAN CORPUSCULAR VOLUME 97.2 fL (83.0-99.0); MEAN PLATELET VOLUME 10.4 fL (9.4-12.3); MONOCYTES ABSOLUTE AUTO 0.95 K/uL (0.00-0.80); MONOCYTES PERCENT AUTO 8.4 % (0.0-8.0); NEUTROPHILS ABSOLUTE AUTO 6.05 K/uL (1.80-7.70); NEUTROPHILS PERCENT AUTO 53.2 % (41.0-71.0); PLATELET COUNT,PLT 271 K/uL (150-400); RED BLOOD CELL COUNT 4.22 M/uL (4.10-5.30); WHITE BLOOD CELL COUNT,WBC 11.36 K/uL (3.9-11.3)
[2024-06-12 22:53] LABS: A/G RATIO 1.1 (0.9-1.6); ALBUMIN 3.6 g/dL (3.4-5.0); BILIRUBIN TOTAL 0.3 mg/dL (0.2-1.0); CALCIUM 9.2 mg/dL (8.5-10.1); CARBON DIOXIDE,CO2 25.1 mmol/L (21.0-32.0); CREATININE 0.9 mg/dL (0.6-1.0); EST CRCL DRUG DOSING (CG) 80.55 mL/min; POTASSIUM,K 4.1 mmol/L (3.5-5.1)
[2024-06-12] MEDS: Morphine 4 MG/ML Syringe IVPUSH ONE (22:56)
[2024-06-12] MEDS: Ketorolac 30 MG/ML SDV IVPUSH ONE (22:56)
[2024-06-12] MEDS: Iopamidol 755 MG/ML 500 ML Multipack Bottle IVPUSH ONE (23:17)
[2024-06-13 03:18] VITALS: BP 112/78; PULSE 78
== END 2024-06-13 03:17 | disposition home or self-care (01) ==
LOC: MW.ED 22:15
DX: K40.90 Unilateral inguinal hernia, without obstruction or gangrene, not specified as recurrent (principal); Z79.899 Other long term (current) drug therapy; F17.210 Nicotine dependence, cigarettes, uncomplicated
CPT/HCPCS: 36415; 74177; 80053; 85025; 96374; 96375; 99285; J1885; J2270; Q9967; 99284

== ENCOUNTER 2024-08-29 21:25 | Emergency (ER) | payer OTHER ==
[2024-08-29] MEDS ORDERED: HYDROmorphone 0.5 MG/0.5 ML Syringe IVPUSH PRN (21:51)
[2024-08-29 22:01] LABS: BASOPHILS ABSOLUTE AUTO 0.11 K/uL (0.00-0.20); BASOPHILS PERCENT AUTO 0.9 % (0.0-1.0); EOSINOPHILS ABSOLUTE AUTO 0.28 K/uL (0.00-0.45); EOSINOPHILS PERCENT AUTO 2.4 % (0.0-6.0); HEMATOCRIT 42.1 % (37.0-47.0); HEMOGLOBIN 14.4 g/dL (12.0-16.0); IMMATURE GRAN ABSOLUTE AUTO 0.02 K/uL (0.00-0.05); IMMATURE GRAN PERCENT AUTO 0.2 % (0.0-0.4); LYMPHOCYTES ABSOLUTE AUTO 2.74 K/uL (1.00-4.80); LYMPHOCYTES PERCENT AUTO 23.3 % (24.0-44.0); MEAN CORPUSCULAR HEMOGLOBIN 32.8 pg (28.0-32.0); MEAN CORPUSCULAR HGB CONC 34.2 g/dL (32.0-36.0); MEAN CORPUSCULAR VOLUME 95.9 fL (83.0-99.0); MEAN PLATELET VOLUME 10.2 fL (9.4-12.3); MONOCYTES PERCENT AUTO 9.4 % (0.0-8.0); NEUTROPHILS ABSOLUTE AUTO 7.49 K/uL (1.80-7.70); NEUTROPHILS PERCENT AUTO 63.8 % (41.0-71.0); PLATELET COUNT,PLT 261 K/uL (150-400); RED BLOOD CELL COUNT 4.39 M/uL (4.10-5.30); WHITE BLOOD CELL COUNT,WBC 11.74 K/uL (3.9-11.3)
[2024-08-29] MEDS: Ondansetron 4 MG/2 ML SDV IVPUSH ONE (22:01)
[2024-08-29] MEDS: HYDROmorphone 0.5 MG/0.5 ML Syringe IVPUSH ONE ×2 (22:02→22:27)
[2024-08-29] MEDS: Sodium Chloride 0.9% 10 ML Syringe FLUSH PRN (22:02)
[2024-08-29 22:40] LABS: A/G RATIO 1.1 (0.9-1.6); ALBUMIN 3.7 g/dL (3.4-5.0); BILIRUBIN TOTAL 0.2 mg/dL (0.2-1.0); CALCIUM 9.2 mg/dL (8.5-10.1); CARBON DIOXIDE,CO2 26.1 mmol/L (21.0-32.0); CREATININE 0.9 mg/dL (0.6-1.0); EST CRCL DRUG DOSING (CG) 80.55 mL/min; POTASSIUM,K 3.8 mmol/L (3.5-5.1)
[2024-08-29] MEDS: droPERidol 5 MG/2 ML SDV IVPUSH ONE (22:43)
[2024-08-29] MEDS: HYDROmorphone 1 MG/ML Syringe IVPUSH ONE (22:48)
[2024-08-30] MEDS: Iopamidol 755 Mg/ML 100 ML Bottle IVPUSH ONE (02:40)
[2024-08-30 07:32] VITALS: BP 106/95; PULSE 78
== END 2024-08-30 01:14 | disposition home or self-care (01) ==
LOC: MW.ED 21:25
DX: K40.30 Unilateral inguinal hernia, with obstruction, without gangrene, not specified as recurrent (principal); Z79.891 Long term (current) use of opiate analgesic; Z79.899 Other long term (current) drug therapy
CPT/HCPCS: 36415; 74177; 80053; 83605; 83690; 85025; 96374; 96375; 96376; 99284; J1171; J1790; J2405; J3490; Q9967

== ENCOUNTER 2024-12-25 06:36 | Day surgery (SDC) | payer OTHER ==
[~2024-12-25 06:36] MED LIST changes: +Acetaminophen 1,000 MG in Premix Bag 1 BAG IV SCH; -Lactated Ringers 1,000 ML IV SCH; +ceFAZolin 2 GM in Sodium Chloride 0.9% 50 ML IV ONE
[2024-12-25] MEDS: Pregabalin 75 MG Cap PO SCH (06:45)
[2024-12-25] MEDS: Lactated Ringers 1,000 ML IV SCH (07:15)
[2024-12-25] MEDS ORDERED: Bupivacaine 0.5% 30 ML SDV ONE (07:16)
[2024-12-25] MEDS ORDERED: dexmedeTOMIDine HCl 200 MCG/2 ML SDV ONE (07:37)
[2024-12-25] MEDS ORDERED: Ropivacaine 0.5% 5 MG/ML 30 ML SDV ONE (07:38)
[2024-12-25] MEDS ORDERED: Sodium Chloride 0.9% 40 ML ONE (07:39)
[2024-12-25] MEDS ORDERED: Propofol 200 MG/20 ML SDV ONE (07:41)
[2024-12-25] MEDS ORDERED: fentaNYL 100 MCG/2 ML SDV ONE (07:41)
[2024-12-25] MEDS ORDERED: Midazolam 1 MG/ML 2 ML SDV ONE (07:42)
[2024-12-25] MEDS ORDERED: Ondansetron 4 MG/2 ML SDV ONE (07:45)
[2024-12-25] MEDS ORDERED: Rocuronium Bromide 50 MG/5 ML Syringe ONE ×2 (07:45→08:43)
[2024-12-25] MEDS ORDERED: Lidocaine 1% 5 ML VIAL ONE (07:45)
[2024-12-25] MEDS ORDERED: Dexamethasone 4 MG/ML 5 ML MDV ONE (07:45)
[2024-12-25] MEDS ORDERED: ceFAZolin 2 GM Vial ONE (08:06)
[2024-12-25] MEDS ORDERED: ePHEDrine 50 MG/ML SDV ONE (08:32)
[2024-12-25] MEDS ORDERED: Sugammadex Sodium 200 MG/2 ML VIAL IV ONE (08:44)
[2024-12-25] MEDS ORDERED: Ketorolac 30 MG/ML SDV ONE (08:44)
[2024-12-25] MEDS ORDERED: HYDROmorphone 1 MG/ML Syringe ONE (10:50)
[2024-12-25] MEDS ORDERED: Albuterol 0.083% 2.5 MG/3 ML Neb Soln NEB PRN (10:50)
[2024-12-25] MEDS ORDERED: Naloxone 0.4 MG/ML SDV IVPUSH PRN (10:50)
[2024-12-25] MEDS ORDERED: Ondansetron 4 MG/2 ML SDV IVPUSH PRN (10:50)
[2024-12-25] MEDS ORDERED: Phenylephrine HCl In 0.9% NaCl 1 MG/10 ML Syringe IVPUSH PRN (10:50)
[2024-12-25] MEDS ORDERED: Metoclopramide 10 MG/2 ML SDV IVPUSH PRN (10:50)
[2024-12-25] MEDS ORDERED: Morphine 2 MG/ML SYRINGE IVPUSH PRN (10:50)
[2024-12-25] MEDS: HYDROmorphone 1 MG/ML Syringe IVPUSH PRN (10:55)
[2024-12-25] MEDS: fentaNYL 50 MCG/ML SDV IVPUSH PRN (11:05)
[2024-12-25 12:19] VITALS: PULSE 61
[2024-12-25] MEDS: Acetaminophen/HYDROcodone 325-5 MG Tab PO ONE (12:41)
[2024-12-25 13:32] VITALS: BP 101/60
== END 2024-12-25 13:20 | disposition home or self-care (01) ==
LOC: MW.SDS 06:36
PROVIDERS: ATTEND Surgery
DX: K40.20 Bilateral inguinal hernia, without obstruction or gangrene, not specified as recurrent (principal); K42.0 Umbilical hernia with obstruction, without gangrene; K41.90 Unilateral femoral hernia, without obstruction or gangrene, not specified as recurrent; M06.9 Rheumatoid arthritis, unspecified; F17.210 Nicotine dependence, cigarettes, uncomplicated; Z79.899 Other long term (current) drug therapy
CPT/HCPCS: 49592; 49650; 49659; 88302; A9270; C1781; J0131; J0665; J0690; J1100; J1171; J1885; J2003; J2250; J2704; J2795; J3010; J7120; 00830; 64486; J2405; J3490

== ENCOUNTER 2024-12-27 09:48 | Emergency (ER) | payer OTHER ==
[2024-12-27 10:46] LABS: BASOPHILS ABSOLUTE AUTO 0.08 K/uL (0.00-0.20); BASOPHILS PERCENT AUTO 0.7 % (0.0-1.0); EOSINOPHILS ABSOLUTE AUTO 0.26 K/uL (0.00-0.45); EOSINOPHILS PERCENT AUTO 2.2 % (0.0-6.0); HEMATOCRIT 41.3 % (37.0-47.0); HEMOGLOBIN 13.7 g/dL (12.0-16.0); IMMATURE GRAN ABSOLUTE AUTO 0.04 K/uL (0.00-0.05); IMMATURE GRAN PERCENT AUTO 0.3 % (0.0-0.4); LYMPHOCYTES ABSOLUTE AUTO 3.41 K/uL (1.00-4.80); LYMPHOCYTES PERCENT AUTO 28.5 % (24.0-44.0); MEAN CORPUSCULAR HEMOGLOBIN 31.9 pg (28.0-32.0); MEAN CORPUSCULAR HGB CONC 33.2 g/dL (32.0-36.0); MEAN PLATELET VOLUME 10.5 fL (9.4-12.3); MONOCYTES ABSOLUTE AUTO 0.92 K/uL (0.00-0.80); MONOCYTES PERCENT AUTO 7.7 % (0.0-8.0); NEUTROPHILS ABSOLUTE AUTO 7.24 K/uL (1.80-7.70); NEUTROPHILS PERCENT AUTO 60.6 % (41.0-71.0); PLATELET COUNT,PLT 244 K/uL (150-400); WHITE BLOOD CELL COUNT,WBC 11.95 K/uL (3.9-11.3)
[2024-12-27] MEDS: Ondansetron 4 MG/2 ML SDV IVPUSH ONE (10:46)
[2024-12-27] MEDS: Sodium Chloride 0.9% 1,000 ML IV ONE (10:46)
[2024-12-27] MEDS: Morphine 4 MG/ML Syringe IVPUSH ONE ×2 (10:46→13:37)
[2024-12-27 11:21] LABS: LACTIC ACID 1.1 mmol/L (0.4-2.0)
[2024-12-27] MEDS: Iopamidol 755 MG/ML 500 ML Multipack Bottle IVPUSH STA ×2 (11:22→14:44)
[2024-12-27 11:24] LABS: A/G RATIO 1.1 (0.9-1.6); ALANINE AMINOTRANSFERASE,ALT 29 IU/L (14-63); ALBUMIN 3.4 g/dL (3.4-5.0); ALKALINE PHOSPHATASE 86 U/L (46-116); ASPARTATE AMNIOTRANSFERASE,AST 24 IU/L (15-37); BILIRUBIN TOTAL 0.3 mg/dL (0.2-1.0); BLOOD UREA NITROGEN,BUN 18 mg/dL (7.0-18.0); CALCIUM 9.3 mg/dL (8.5-10.1); CARBON DIOXIDE,CO2 30.3 mmol/L (21.0-32.0); CHLORIDE,CL 108 mmol/L (98-107); CREATININE 0.8 mg/dL (0.6-1.0); EST CRCL DRUG DOSING (CG) 90.61 mL/min; GLUCOSE RANDOM 94 mg/dL (74-106); LIPASE 23 U/L (16-77); MAGNESIUM 2.2 mg/dL (1.8-2.4); POTASSIUM,K 4.6 mmol/L (3.5-5.1); PROTEIN TOTAL,TP 6.5 g/dL (6.4-8.2); SODIUM,NA 144 mmol/L (136-145)
[2024-12-27 11:26] LABS: ESTIMATED GFR 86 mL/min (>60)
[2024-12-27] MEDS: Lidocaine 2% Viscous Solution 15 ML UD PO ONE ×2 (12:00→15:52)
[2024-12-27] MEDS: Piperacillin/Tazobactam 4.5 GM in Sodium Chloride 0.9% 100 ML IV ONE (13:39)
[2024-12-27] MEDS: VANCOmycin 1.75 GM/350 ML 1.75 GM in Premix Bag 1 BAG IV ONE (13:40)
[2024-12-27] MEDS: Piperacillin/Tazobactam 3.375 GM in Sodium Chloride 0.9% 100 ML IV ONE (13:41)
[2024-12-27] MEDS: Diatrizoate Meglumine/Diatrizoate Sodium 37% 30 ML Bottle PO STA (15:18)
[2024-12-27 17:18] VITALS: BP 116/70; PULSE 50
== END 2024-12-27 17:18 | disposition home or self-care (01) ==
LOC: MW.ED 09:48
DX: K22.4 Dyskinesia of esophagus (principal); Z79.899 Other long term (current) drug therapy; Z75.8 Other problems related to medical facilities and other health care
CPT/HCPCS: 36415; 71046; 71260; 80053; 83605; 83690; 83735; 84484; 85025; 87428; 96361; 96365; 96367; 96375; 96376; 99284; A9270; J2270; J2405; J2543; J3372; J3490; J7030; Q9967

== ENCOUNTER 2025-09-24 18:23 | Emergency (ER) | payer OTHER ==
[2025-09-24 19:01] LABS: BASOPHILS ABSOLUTE AUTO 0.09 K/uL (0.00-0.20); BASOPHILS PERCENT AUTO 1.0 % (0.0-1.0); EOSINOPHILS ABSOLUTE AUTO 0.24 K/uL (0.00-0.45); EOSINOPHILS PERCENT AUTO 2.6 % (0.0-6.0); IMMATURE GRAN ABSOLUTE AUTO 0.04 K/uL (0.00-0.05); IMMATURE GRAN PERCENT AUTO 0.4 % (0.0-0.4); LYMPHOCYTES ABSOLUTE AUTO 3.26 K/uL (1.00-4.80); LYMPHOCYTES PERCENT AUTO 35.2 % (24.0-44.0); MEAN PLATELET VOLUME 9.3 fL (9.4-12.3); MONOCYTES ABSOLUTE AUTO 1.04 K/uL (0.00-0.80); MONOCYTES PERCENT AUTO 11.2 % (0.0-8.0); NEUTROPHILS ABSOLUTE AUTO 4.60 K/uL (1.80-7.70); NEUTROPHILS PERCENT AUTO 49.6 % (41.0-71.0); NRBC ABSOLUTE 0.00 K/uL (0.00-0.02); NRBC PERCENT 0.0 /100WBC (0.0-0.2); PLATELET COUNT,PLT 291 K/uL (150-400); RED BLOOD CELL COUNT 4.21 M/uL (4.10-5.30); WHITE BLOOD CELL COUNT,WBC 9.27 K/uL (3.9-11.3)
[2025-09-24 19:27] LABS: A/G RATIO 0.8 (0.9-1.6); ALANINE AMINOTRANSFERASE,ALT 22 IU/L (14-63); ASPARTATE AMNIOTRANSFERASE,AST 18 IU/L (15-37); BILIRUBIN TOTAL 0.2 mg/dL (0.2-1.0); BLOOD UREA NITROGEN,BUN 24 mg/dL (7.0-18.0); CARBON DIOXIDE,CO2 31.1 mmol/L (21.0-32.0); CHLORIDE,CL 105 mmol/L (98-107); CREATININE 1.0 mg/dL (0.6-1.0); GLUCOSE RANDOM 93 mg/dL (74-106); POTASSIUM,K 4.9 mmol/L (3.5-5.1); PROTEIN TOTAL,TP 6.5 g/dL (6.4-8.2); SODIUM,NA 140 mmol/L (136-145)
[2025-09-24 19:29] LABS: ESTIMATED GFR 66 mL/min (>60)
[2025-09-24 19:42] VITALS: BP 111/75; PULSE 70
[2025-09-24 21:47] LABS: APPEARANCE,URINE CLEAR; GLUCOSE,URINE NEGATIVE (NEGATIVE); OCCULT BLOOD,URINE NEGATIVE (NEGATIVE)
[2025-09-24] MEDS: Ketorolac 30 MG/ML SDV IM ONE (22:06)
== END 2025-09-24 23:09 | disposition home or self-care (01) ==
LOC: MW.ED 18:23
DX: M54.41 Lumbago with sciatica, right side (principal); F17.200 Nicotine dependence, unspecified, uncomplicated; Z79.899 Other long term (current) drug therapy
CPT/HCPCS: 36415; 71250; 74176; 80053; 81003; 83690; 85025; 96372; 99284; A9270; J1885; J8540